=== PATIENT | male | born 1985 | race African-American/Black ===

== ENCOUNTER 2017-11-06 18:41 | Emergency (ER) | payer MEDICAID ==
[~2017-11-06] VITALS: Ht 165.1 cm; Wt 62.0 kg
[2017-11-07] MEDS ORDERED: IBUPROFEN 600MG TABLET PO ONE
[2017-11-07] MEDS ORDERED: LIDOCAINE HCL/PF 1% 10 MG/ML 5ML VIAL IJ ONE (00:45)
[2017-11-07 01:41] VITALS: BP 122/65
== END 2017-11-07 01:42 | disposition home or self-care (01) ==
LOC: ER 18:41
DX: S62.397A Other fracture of fifth metacarpal bone, left hand, initial encounter for closed fracture (principal); W01.0XXA Fall on same level from slipping, tripping and stumbling without subsequent striking against object, initial encounter; Y93.67 Activity, basketball; Y92.89 Other specified places as the place of occurrence of the external cause
CPT/HCPCS: 26605; 73130; 99284

== ENCOUNTER 2023-02-20 20:37 | Emergency (ER) | payer MEDICAID, OTHER ==
[~2023-02-20] VITALS: Ht 167.6 cm; Wt 86.1 kg
[2023-02-20 21:39] VITALS: BP 125/67; PULSE 86; RESP 18; TEMP 98.6; O2SAT 97
[2023-02-20] MEDS ORDERED: ACET-2708 MT (23:07)
== END 2023-02-20 23:59 | disposition home or self-care (01) ==
LOC: ER 20:37
DX: R51.9 Headache, unspecified (principal); V99.XXXA Unspecified transport accident, initial encounter; Y93.89 Activity, other specified; Y92.89 Other specified places as the place of occurrence of the external cause; Y99.8 Other external cause status
CPT/HCPCS: 99282

== ENCOUNTER 2024-01-22 14:11 | Emergency (ER) | payer MEDICAID, OTHER ==
[~2024-01-22] VITALS: Ht 165.1 cm; Wt 82.0 kg
[~2024-01-22 14:11] MED LIST: ACET-2708 MT
[2024-01-22 14:14] VITALS: O2SAT 97
[2024-01-22 15:14] LABS: BASOPHILS % 0.3 % (0.0-2.0); EOSINOPHILS % 0.9 % (0.0-5.0); HEMATOCRIT. 46.5 % (42.0-52.0); HEMOGLOBIN. 15.5 g/dL (14.0-18.0); LYMPHOCYTES % 17.7 % (20.0-50.0); MEAN CORPUSCULAR HGB CONC 33.4 g/dL (31.0-37.0); MEAN CORPUSCULAR VOLUME 95.7 fL (80.0-94.0); MEAN PLATELET VOLUME 9.8 fl (7.4-10.4); NEUTROPHILS % 74.1 % (40.0-76.0); PLATELET 172 x1000/uL (130-400); RED BLOOD CELL COUNT 4.86 mill/uL (4.7-6.1); RED CELL DISTRIBUTION WIDTH 13.5 % (11.6-14.6); WHITE BLOOD COUNT 8.3 x1000/uL (4.5-11.0)
[2024-01-22 15:15] LABS: CHLORIDE 104 mEq/L (98-107); POTASSIUM 3.7 mEq/L (3.5-5.1); SODIUM 140 mEq/L (136-145)
[2024-01-22 15:16] LABS: CALCIUM 9.3 mg/dL (8.7-10.4); CARBON DIOXIDE 29 mEq/L (21-32)
[2024-01-22 15:21] LABS: CREATININE 0.9 mg/dL (0.6-1.3); GLUCOSE 115 mg/dL (70-105); UREA NITROGEN BLOOD 8 mg/dL (9-23)
[2024-01-22 15:22] LABS: TROPONIN I HIGH SENSITIVITY 26 ng/L (3.0-53)
[2024-01-22 16:02] LABS: INR 0.9; PROTHROMBIN TIME 10.3 sec (9.6-11.0)
[2024-01-22 17:48] LABS: CLARITY URINE CLEAR (CLEAR); COLOR URINE YELLOW (YELLOW); GLUCOSE URINE NEGATIVE (NEGATIVE); KETONES URINE TRACE (NEGATIVE); LEUKOCYTE ESTERASE URINE NEGATIVE (NEGATIVE); NITRITE URINE NEGATIVE (NEGATIVE); OCCULT BLOOD URINE NEGATIVE (NEGATIVE); PH URINE 6.5 (4.5-8.0); PROTEIN URINE NEGATIVE (NEGATIVE); SPECIFIC GRAVITY URINE 1.024 (1.005-1.030); UROBILINOGEN URINE 0.2 E.U./dL (0.2-1.0)
[2024-01-22] MEDS ORDERED: TRAZ-251 PO (18:17)
[2024-01-22] MEDS ORDERED: [UNRECOGNIZED DRUG - OTHER] (18:17)
[2024-01-22] MEDS ORDERED: ISOP30DR11 EACH EAR (18:17)
[2024-01-22] MEDS ORDERED: VIT D3 (18:17)
[2024-01-22] MEDS ORDERED: LEVE750T4 PO (18:17)
[2024-01-22] MEDS ORDERED: OMEP20TA15 PO (18:17)
[2024-01-22] MEDS ORDERED: TH50 GT (18:17)
[2024-01-22] MEDS ORDERED: FERR325T30 PO (18:17)
[2024-01-22] MEDS ORDERED: DIVA250T4 PO (18:17)
[2024-01-22 19:26] VITALS: BP 135/109; PULSE 71; RESP 14; TEMP 36.66960; O2SAT 97
== END 2024-01-22 19:38 | disposition home or self-care (01) ==
LOC: ER 14:11
DX: R04.2 Hemoptysis (principal); K21.9 Gastro-esophageal reflux disease without esophagitis; G40.909 Epilepsy, unspecified, not intractable, without status epilepticus; Z79.899 Other long term (current) drug therapy
CPT/HCPCS: 36415; 71045; 80048; 81003; 84484; 85025; 85379; 86850; 86900; 93005; 99285

== ENCOUNTER 2024-06-11 17:26 | Emergency (ER) | payer MEDICAID ==
[~2024-06-11] VITALS: Ht 162.6 cm; Wt 75.0 kg
[~2024-06-11 17:26] MED LIST changes: +DIVA250T4 PO; +FERR325T30 PO; +ISOP30DR11 EACH EAR; +LEVE750T4 PO; +OMEP20TA15 PO; +TH50 GT; +TRAZ-251 PO; +VIT D3; +[UNRECOGNIZED DRUG - OTHER]
[2024-06-11 17:31] VITALS: O2SAT 97
[2024-06-11] MEDS: IBUPROFEN 400MG TABLET PO ONE (18:49)
[2024-06-11] MEDS: ACETAMINOPHEN 325MG TABLET PO ONE (18:49)
[2024-06-11] MEDS ORDERED: LIDO700A15 TP (19:05)
[2024-06-11] MEDS ORDERED: METH-653 MT (19:05)
[2024-06-11] MEDS ORDERED: IBUP-2028 MT (19:05)
[2024-06-11] MEDS ORDERED: TOPUD PO (19:05)
[2024-06-11 19:35] VITALS: BP 114/76; PULSE 69; RESP 14; TEMP 36.9; O2SAT 96
== END 2024-06-11 19:41 | disposition home or self-care (01) ==
LOC: ER 17:26
DX: M54.50 Low back pain, unspecified (principal); Z79.899 Other long term (current) drug therapy; V89.2XXA Person injured in unspecified motor-vehicle accident, traffic, initial encounter; Y93.89 Activity, other specified; Y92.89 Other specified places as the place of occurrence of the external cause; Y99.8 Other external cause status
CPT/HCPCS: 73502; 99283